=== PATIENT | male | born 1975 | race African-American/Black ===

== ENCOUNTER 2017-10-31 12:34 | Day surgery (SDC) | payer OTHER ==
[~2017-10-31] VITALS: Ht 172.7 cm; Wt 75.5 kg
[2017-10-31] MEDS ORDERED: LIDOCAINE 1%, 2ML ONE (13:05)
[2017-10-31] MEDS ORDERED: LACTATED RINGERS 1,000 ML IV SCH (13:06)
[2017-10-31] MEDS ORDERED: [UNRECOGNIZED DRUG - REMARK] PO (13:15)
[2017-10-31] MEDS ORDERED: MORPHINE PO (13:15)
[2017-10-31] MEDS ORDERED: COUMADIN PO (13:15)
[2017-10-31] MEDS ORDERED: OXYC15TA PO (13:15)
[2017-10-31] MEDS ORDERED: MULT-658 PO (13:15)
[2017-10-31] MEDS ORDERED: BLOOD PRESSURE MED? PO (13:15)
[2017-10-31 13:28] VITALS: BP 152/114
[2017-10-31] MEDS ORDERED: LIDOCAINE 1%, 2ML SQ PRN (13:30)
[2017-10-31] MEDS ORDERED: PLEASE ENTER HEIGHT AND WEIGHT MC SCH (13:30)
[2017-10-31] MEDS ORDERED: BUPIVACAINE/PF 0.25% ONE (13:31)
[2017-10-31] MEDS ORDERED: TRIAMCINOLONE ACETONIDE 40 MG/ML, 1ML ONE (13:31)
[2017-10-31 13:35] LABS: BASOPHILS # (AUTO) 0.05 x10^3/uL (0-0.1); BASOPHILS % (AUTO) 1 % (0-1); EOSINOPHILS # (AUTO) 0.05 x10^3/uL (0-0.4); EOSINOPHILS % (AUTO) 1 % (1-7); LYMPHOCYTES # (AUTO) 1.05 x10^3/uL (1-3.4); LYMPHOCYTES % (AUTO) 11 % (22-44); MD NO; MEAN CORPUSCULAR HEMOGLOBIN 33.5 pg (27.5-34.5); MEAN CORPUSCULAR HGB CONC 33.8 g/dL (33.2-36.2); MEAN CORPUSCULAR VOLUME 99.2 fL (81-97); MEAN PLATELET VOLUME 8.4 fL (7.4-10.4); MONOCYTES # (AUTO) 0.53 x10^3/uL (0.2-0.8); MONOCYTES % (AUTO) 6 % (2-9); NEUTROPHILS # (AUTO) 7.94 x10^3/uL (1.8-6.8); NEUTROPHILS % (AUTO) 83 % (42-75); PLATELET COUNT 226 x10^3/uL (130-400); RED BLOOD COUNT 4.19 x10^6/uL (4.38-5.82); RED CELL DISTRIBUTION WIDTH 17.4 % (9.4-14.8)
[2017-10-31 13:39] VITALS: BP 144/106
[2017-10-31 13:39] LABS: INTERNATIONAL NORMALIZED RATIO 1.57 (0.93-1.1); PROTHROMBIN TIME 16.2 Seconds (9.6-11.5)
[2017-10-31 13:43] LABS: ALANINE AMINOTRANSFERASE 35 U/L (12-78); ALBUMIN 3.6 g/dL (3.4-5.0); ANION GAP 11 mmol/L (5-15); CALCIUM 8.9 mg/dL (8.5-10.1); CHLORIDE 102 mmol/L (98-107)
[2017-10-31 13:45] LABS: ALKALINE PHOSPHATASE 145 U/L (45-117); BILIRUBIN,TOTAL 2.3 mg/dL (0.2-1.0); TOTAL PROTEIN 7.1 g/dL (6.4-8.2)
[2017-10-31] MEDS ORDERED: MIDAZOLAM 1 MG/ML, 2ML ONE (13:46)
[2017-10-31] MEDS ORDERED: FENTANYL PF 100 MCG/2ML ONE (13:46)
[2017-10-31] MEDS ORDERED: PROPOFOL 10 MG/ML, 20ML ONE ×2 (13:48→14:09)
[2017-10-31] MEDS ORDERED: LIDOCAINE-MPF 2% ,5ML ONE (13:48)
[2017-10-31] MEDS ORDERED: CEFAZOLIN 1,000 MG ONE (13:56)
[2017-10-31] MEDS ORDERED: HYDROcodone/APAP 7.5-325MG/15ML UDC PO PRN (15:00)
[2017-10-31] MEDS ORDERED: ONDANSETRON 2MG/ML, 2ML IVPush PRN (15:00)
[2017-10-31] MEDS ORDERED: morphine SULFATE 10 MG/ML, 1ML IV PRN (15:00)
[2017-10-31] MEDS ORDERED: FENTANYL PF 100 MCG/2ML IV PRN (15:00)
== END 2017-10-31 18:15 ==
LOC: OUT 12:34
PROVIDERS: ATTEND Internal Medicine
DX: K86.1 Other chronic pancreatitis (principal); K21.0 Gastro-esophageal reflux disease with esophagitis
CPT/HCPCS: 36415; 43259; 80053; 85025; 85610; 85730; 93005; J0690; J2250; J2704; J3010; J3301; J3490; J7120